=== PATIENT | male | born 1960 | race African-American/Black ===

== ENCOUNTER 2020-03-14 00:55 | Outpatient (CLI) | payer OTHER, SELFPAY ==
[2020-03-14 17:34] LABS: SARS-CoV-2 RNA PCR Negative
== END 2020-03-14 00:56 | disposition home or self-care (01) ==
PROVIDERS: PCP Family Medicine; Visit Provider Internal Medicine Gastroenterology
DX: Z01.812 Encounter for preprocedural laboratory examination (principal); Z11.59 Encounter for screening for other viral diseases
CPT/HCPCS: 87635; C9803; U0003

== ENCOUNTER 2020-03-16 01:14 | Day surgery (SDC) | payer OTHER, SELFPAY ==
[2020-03-09 15:01] VITALS: BMI 40.6
[2020-03-16 06:07] VITALS: BP 116/78; PULSE 72; RESP 18; TEMP 36.4; O2SAT 96; BMI 41.0
[2020-03-16 06:42] LABS: Glucose Point of Care 107 (65-105)
[2020-03-16] MEDS: LACTATED RINGERS 1,000 ML 150 ML IV CONT (06:47)
--- NOTE | 2020-03-16 06:49 | PM.HPGS ---
History of Present Illness History of Present Illness Consent: Risks, benefits, and alternatives have been discussed and questions answered. Patient agrees to proceed with procedure. Chief complaint: Neoplasm Screening Narrative: Skyler Jenkins is a 59 year old AA male Referred for screening colonoscopy secondary to a family history of colon cancer in his brother diagnosed in his 40s. Patient also with a personal history of colon polyps. Patient had a tubulovillous adenoma the rectum removed 7 years ago. He was post return 2 years ago but lost track of time, even though he received a letter. patient is asymptomatic. [facility] Past Medical History Medical History Adenomatous colon polyp Benign essential HTN Gout Hyperlipidemia Type 2 diabetes mellitus with hyperglycemia Family History Family History Mother Hypertension Family history of elevated blood lipids Cerebrovascular accident, Onset Age: 70 Family history of diabetes mellitus in first degree relative Other Carcinoma of colon Diabetes mellitus Family history of arthritis Family history of cardiovascular disease Family history of gout Heart disease Social History Social History Smoking status: Current some day smoker Tobacco type: cigars Second hand tobacco smoke exposure: No Alcohol intake: current Substance use: current Substance use type: marijuana Gender identity (if verbalized by the patient): Male Meds Home Medications and Allergies Home Medications Medication Instructions Recorded Confirmed Type phentermine 37.5 mg capsule 37.5 mg PO DAILY 12/20/19 History sitagliptin 50 mg-metformin ER 1 tablet PO DAILY 12/20/19 History 1,000 mg tablet,extended release 24h mp colchicine 0.6 mg tablet 0.6 mg PO DAILY #30 tablet 02/24/20 03/16/20 Rx hydrochlorothiazide 12.5 mg tablet 12.5 mg PO DAILY #90 tablet 02/24/20 03/16/20 Rx losartan 100 mg tablet 100 mg PO DAILY #90 tablet 02/24/20 03/16/20 Rx sildenafil 100 mg tablet 100 mg PO DAILY PRN #30 tablet NS 02/24/20 03/16/20 Rx sitagliptin 50 mg-metformin ER 1 tablet PO DAILY #90 tablet 02/24/20 03/09/20 Rx 1,000 mg tablet,extended release 24h mp diltiazem HCl [Cartia XT] 120 mg PO DAILY 03/09/20 03/16/20 History Allergies Allergy/AdvReac Type Severity Reaction Status Date / Time No Known Allergies Allergy Unknown Verified 03/16/20 06:16 Vital Signs Vital Signs - 24 hr 03/16/20 06:07 Temperature 36.4 C Pulse Rate 72 Respiratory Rate 18 Blood Pressure 116/78 Pulse Oximetry 96 Exam Const: Orientation/consciousness: patient oriented x3 Resp: Auscultation: clear to auscultation bilaterally Cardio: Rate: regular rate Rhythm: regular rhythm Heart sounds: no murmurs GI: GI Palp: Yes Soft to palpation, No Tenderness to palpation present (GI), Yes No hepatosplenomegaly present and No Palpable mass present Auscultation: normal bowel sounds Neuro: General: patient oriented x3 and no focal motor deficits Extrem: General: no pedal edema Assessment and Plan Additional Plan Screening colonoscopy in high risk patient
--- NOTE | 2020-03-16 07:01 | WPDANESEPPF ---
Anes - Initial Pre Proc Eval Procedure: Operation Date: 03/16/20 07:30 Proposed Procedures p Screening Colonoscopy - Olu Bose MD Date/Time: 03/16/20 07:01 Surgeon: Olu Bose MD Pre Op Diagnosis: Neoplasm Screening Patient Data Age: 59 Gender: M Height: 1.75 m Weight: 126 kg Last Vital Signs Temp 36.4 C 03/16/20 06:07 Pulse 72 03/16/20 06:07 Resp 18 03/16/20 06:07 BP 116/78 03/16/20 06:07 Pulse Ox 96 03/16/20 06:07 Allergies Allergy/AdvReac Type Severity Reaction Status Date / Time No Known Allergies Allergy Unknown Verified 03/16/20 06:16 Home Medications Medication Instructions Recorded Confirmed Type phentermine 37.5 mg capsule 37.5 mg PO DAILY 12/20/19 History sitagliptin 50 mg-metformin ER 1 tablet PO DAILY 12/20/19 History 1,000 mg tablet,extended release 24h mp colchicine 0.6 mg tablet 0.6 mg PO DAILY #30 tablet 02/24/20 03/16/20 Rx hydrochlorothiazide 12.5 mg tablet 12.5 mg PO DAILY #90 tablet 02/24/20 03/16/20 Rx losartan 100 mg tablet 100 mg PO DAILY #90 tablet 02/24/20 03/16/20 Rx sildenafil 100 mg tablet 100 mg PO DAILY PRN #30 tablet NS 02/24/20 03/16/20 Rx sitagliptin 50 mg-metformin ER 1 tablet PO DAILY #90 tablet 02/24/20 03/09/20 Rx 1,000 mg tablet,extended release 24h mp diltiazem HCl [Cartia XT] 120 mg PO DAILY 03/09/20 03/16/20 History Laboratory Tests 03/16/20 06:40 POC Capillary Glucose 107 mg/dl mg/dl (65-105) Patient hx anesthesia problems: none Family hx anesthesia problems: none PMFSH Past Medical History Medical History Adenomatous colon polyp Benign essential HTN Gout Hyperlipidemia Type 2 diabetes mellitus with hyperglycemia Family History Family History Mother Hypertension Family history of elevated blood lipids Cerebrovascular accident, Onset Age: 70 Family history of diabetes mellitus in first degree relative Other Carcinoma of colon Diabetes mellitus Family history of arthritis Family history of cardiovascular disease Family history of gout Heart disease Social History Social History Smoking status: Current some day smoker Tobacco type: cigars Second hand tobacco smoke exposure: No Alcohol intake: current Substance use: current Substance use type: marijuana Gender identity (if verbalized by the patient): Male Anes - Eval Final PreProcedure Day of Procedure 03/16/20 07:01 Patient weight: morbidly obese Heart: regular rate and rhythm Lungs: clear to auscultation and normal air movement Airway: Mallampati scale class III Neurological: alert and oriented Last oral intake: >/= 8 hours ASA classification: III Emergent: no Anesthetic plan: proceed Anesthesia type and monitoring: general GIVS and standard monitoring Informed Consent: The patient's anesthetic plan and its attendant risks and benefits were discussed with the patient/family/POA. Questions were solicited and answers provided to the satisfaction of the patient/family/POA.
--- NOTE | 2020-03-16 07:59 | SUR.OPER ---
RESOLUTION CLIP X1: LOT: [id number], EXPIRATION: 2022-04-09
[2020-03-16 08:02] VITALS: BP 93/63; PULSE 79; RESP 26; O2SAT 99
[2020-03-16 08:12] VITALS: BP 105/66; PULSE 74; RESP 19; O2SAT 99
[2020-03-16 08:22] VITALS: BP 116/78; PULSE 70; RESP 22; O2SAT 100
== END 2020-03-16 08:46 | disposition home or self-care (01) ==
PROVIDERS: PCP Family Medicine; Visit Provider Internal Medicine Gastroenterology
PROC: 0DJD8ZZ Inspection of Lower Intestinal Tract, Via Natural or Artificial Opening Endoscopic (ICD-10-PCS; CPT 45378; principal; 2020-03-16 07:30)
DX: Z12.11 Encounter for screening for malignant neoplasm of colon (principal); D12.5 Benign neoplasm of sigmoid colon; D12.0 Benign neoplasm of cecum; D12.3 Benign neoplasm of transverse colon; K57.30 Diverticulosis of large intestine without perforation or abscess without bleeding; E11.65 Type 2 diabetes mellitus with hyperglycemia; I10 Essential (primary) hypertension; E78.5 Hyperlipidemia, unspecified; M10.9 Gout, unspecified
CPT/HCPCS: 45385; 45381; 88305; J2704; J7120